=== PATIENT | male | born 1970 | race Caucasian/White ===

== ENCOUNTER 2018-05-19 16:36 | Emergency (ER) | payer BC, OTHER ==
[~2018-05-19] VITALS: Ht 185.4 cm; Wt 93.1 kg
[2018-05-19 16:45] VITALS: TEMP 36.9; Ht 185.4 cm; Wt 93.1 kg
[2018-05-19] MEDS ORDERED: LIDOCAINE/EPINEPHRINE 1% 20 ML VIAL INFIL ONE (17:15)
--- NOTE | 2018-05-19 17:22 | DIAGNOSTIC IMAGING REPORT ---
LEFT TIBIA AND FIBULA 2 VIEWS CLINICAL HISTORY: Puncture injury. FINDINGS: AP and lateral views of the left tibia and fibula are obtained. No prior studies are available for comparison at the time of dictation. The skeletal structures are well mineralized. No fracture is seen. There is no bony erosion or periostitis. The knee and ankle joints are grossly maintained. Proximal pretibial soft tissue edema is noted. No radiodense foreign body is identified. IMPRESSION: 1. No acute bony abnormality is identified. 2. There is proximal pretibial soft tissue edema. 3. No radiodense foreign body is seen. Electronically signed by: Pedro Pablo Austin M.D. 05/19/2018 5:21 PM Dictated Date/Time: 05/19/2018 5:19 PM
[2018-05-19] MEDS ORDERED: CEPH500C PO (18:11)
[2018-05-19 18:18] VITALS: BP 120/75; PULSE 90; O2SAT 96
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
== END 2018-05-19 18:20 | disposition home or self-care (01) ==
LOC: C.EDB 16:37 → C.EDD 18:20
DX: S81.812A Laceration without foreign body, left lower leg, initial encounter (principal); W45.8XXA Other foreign body or object entering through skin, initial encounter